=== PATIENT | female | born 1965 | race Two or more races ===

== ENCOUNTER 2016-10-25 10:18 | Emergency (ER) | payer MEDICAID, OTHER ==
[~2016-10-25] VITALS: Ht 157.5 cm; Wt 96.6 kg
[2016-10-25 12:44] VITALS: BP 154/91
== END 2016-10-25 15:03 | disposition home or self-care (01) ==
LOC: ER 10:18
DX: L03.116 Cellulitis of left lower limb (principal); G89.29 Other chronic pain; M25.562 Pain in left knee; Z90.89 Acquired absence of other organs
CPT/HCPCS: 73562; 82962; 93971